=== PATIENT | female | born 1985 | race Hispanic/Latino ===

== ENCOUNTER 2017-05-18 12:37 | Emergency (ER) | payer OTHER ==
[~2017-05-18] VITALS: Ht 162.6 cm; Wt 79.4 kg
[2017-05-18] MEDS ORDERED: BUTALB-ACETAMI1 EACH (13:22)
[2017-05-18] MEDS ORDERED: MECLIZINE HCL12.5 MG PO (13:22)
== END 2017-05-18 13:24 | disposition home or self-care (01) ==
LOC: FSED 12:37
DX: R42 Dizziness and giddiness (principal); H81.13 Benign paroxysmal vertigo, bilateral
CPT/HCPCS: 99282

== ENCOUNTER 2018-11-15 10:27 | Emergency (ER) | payer OTHER ==
[~2018-11-15] VITALS: Ht 162.6 cm; Wt 92.7 kg
[~2018-11-15 10:27] MED LIST: BUTALB-ACETAMI1 EACH; MECLIZINE HCL12.5 MG PO
--- NOTE | 2018-11-15 11:19 | Diagnostic Imaging Report ---
Chest, 2 views, 11/15/2018. History: Left-sided chest pain. Comparison: None available. Findings: The cardiomediastinal silhouette and pulmonary vasculature are within normal limits. The lungs are clear without evidence of consolidation or pleural effusion. There are no acute osseous or soft tissue abnormalities. Impression: No acute cardiopulmonary abnormality. Signed by: Justo Eisenberg on 11/15/2018 11:15 AM
[2018-11-15 11:23] VITALS: BP 114/70
== END 2018-11-15 11:32 | disposition home or self-care (01) ==
LOC: FSED 10:27
DX: R07.89 Other chest pain (principal); M94.0 Chondrocostal junction syndrome [Tietze]; F41.9 Anxiety disorder, unspecified
CPT/HCPCS: 71046; 80048; 80076; 81025; 82553; 84484; 85025; 85379; 93005; 99284